=== PATIENT | male | born 1955 | race Hispanic/Latino ===

== ENCOUNTER 2017-09-20 14:04 | Emergency (ER) | payer OTHER ==
--- NOTE | 2017-09-20 18:35 | Emergency Department Report ---
HPI - General Chief Complaint: High BP Time Seen by Provider: 09/20/17 18:30 - HPI HPI: 61-year-old male comes in for elevated blood pressure. Patient was seen by his primary care nurse practitioner Hue Craig in [place] last week. At that time patient's blood pressure was elevated she had increased his lisinopril from 20 mg to 30 mg daily and to continue with amlodipine 5 mg. She also did an EKG which showed a right branch bundle block. She then referred the patient to district operations manager Dr. Peguero where the patient was seen in this Friday since the patient's blood pressure was 130/80 something the district operations manager did not do medication adjustment. Bet Taker did schedule the patient for echocardiogram as well as a stress test scheduled for 09/26/2017. A follow-up appointment with them on 10/06/2017. Patient denies any shortness of breath denies any chest pain does admit to a headache does admit to having nosebleeds. Patient is here with this disorder son and girlfriend. ED Past Medical Hx - Past Medical History Previous Medical History?: Yes Hx Hypertension: Yes - Social History Smoking Status: Former Smoker Substance Use Type: None - Medications Home Medications: Home Medications Medication Instructions Recorded Confirmed Last Taken Type Clindamycin [Clindamycin CAP] 300 mg PO Q8H 10 Days #30 cap 09/20/17 Unknown Rx Lisinopril [Zestril] 40 mg PO DAILY #30 tablet 09/20/17 Unknown Rx amLODIPine [Norvasc] 10 mg PO DAILY #30 tab 09/20/17 Unknown Rx ED Review of Systems ROS: Stated complaint: HIGH B/P AND HEADACHE Other details as noted in HPI Constitutional: denies: chills, fever Eyes: denies: eye pain, eye discharge, vision change ENT: denies: ear pain, throat pain Respiratory: denies: cough, shortness of breath, wheezing Cardiovascular: denies: chest pain, palpitations Endocrine: no symptoms reported Gastrointestinal: denies: abdominal pain, nausea, diarrhea Genitourinary: denies: urgency, dysuria Musculoskeletal: denies: back pain, joint swelling, arthralgia Skin: denies: rash, lesions Neurological: headache. denies: weakness, paresthesias Physical Exam - Physical Exam Vital Signs: Vital Signs 09/20/17 15:13 Temperature 98.3 F Pulse Rate 90 Respiratory 16 Rate Blood Pressure 173/107 Blood Pressure 173/107 [Left] O2 Sat by Pulse 95 Oximetry General: Alert and oriented no acute distress nontoxic Physical Exam: GENERAL APPEARANCE: Well developed, well nourished, in no acute distress. SKIN: Inspection of the skin reveals no rashes, ulcerations or petechiae. HEENT: The sclerae were anicteric and conjunctivae were pink and moist. Extraocular movements were intact and pupils were equal, round, and reactive to light with normal accommodation. External inspection of the ears and nose showed no scars, lesions, or masses. Lips, teeth, and gums showed normal mucosa. The oral mucosa, hard and soft palate, tongue and posterior pharynx were normal. NECK: Supple and symmetric. There was no thyroid enlargement, and no tenderness , or masses were felt. CHEST: Normal AP diameter and normal contour without any kyphoscoliosis. LUNGS: Auscultation of the lungs revealed normal breath sounds without any other adventitious sounds or rubs. CARDIOVASCULAR: There was a regular rate and rhythm without any murmurs, gallops , rubs. The carotid pulses were normal and 2+ bilaterally without bruits. Peripheral pulses were 2+ and symmetric. MUSCULOSKELETAL: Gait was normal. There was no tenderness or effusions noted. Muscle strength and tone were normal. EXTREMITIES: No cyanosis, clubbing or edema. NEUROLOGIC: Alert and oriented x 3. Normal affect. Gait was normal. Normal deep tendon reflexes with no pathological reflexes. Sensation to touch was normal. ED Course Vital Signs 09/20/17 15:13 Temperature 98.3 F Pulse Rate 90 Respiratory 16 Rate Blood Pressure 173/107 Blood Pressure 173/107 [Left] O2 Sat by Pulse 95 Oximetry ED Medical Decision Making - Radiology Data Radiology results: report reviewed, image reviewed FINAL REPORT PROCEDURE: CT HEAD/BRAIN WO CON TECHNIQUE: Computerized tomography of the head was performed without contrast material. HISTORY: headache and dizziness COMPARISON: No prior studies are available for comparison. FINDINGS: Skull and scalp: Normal. Paranasal sinuses: Minimal fluid left mastoid Ventricles and subarachnoid spaces: Normal. Cerebrum: No evidence of hemorrhage, acute infarction or mass . Cerebellum and brainstem: No evidence of hemorrhage, acute infarction or mass. Vasculature: Dominant left vertebral artery Comments: Moderate diffuse atrophy with mild periventricular microischemic change and central lacunar infarct disease IMPRESSION: No definite acute intracranial pathology. Minimal left mastoiditis. Transcribed By: TUYET Dictated By: SAVANNAH HIRSCH MD Electronically Authenticated By: SAVANNAH HIRSCH MD Signed Date/Time: 09/20/17 1504 - Medical Decision Making Patient has been evaluated by this provider fast track. Discussed the patient would do a CT scan of his head. As well as all increase his amlodipine to 10 mg daily as well as increase lisinopril to 40 mg daily. Discussed with patient he needs to keep his appointment as scheduled for his stress test and echocardiogram on 09/26/2017 as well as keep his follow-up appointment with his district operations manager as 10/06/2017. Patient verbalized understanding. Critical care attestation.: If time is entered above; I have spent that time in minutes in the direct care of this critically ill patient, excluding procedure time. ED Disposition Clinical Impression: Mastoiditis of left side Hypertension Qualifiers: Hypertension type: unspecified Qualified Code(s): I10 - Essential (primary) hypertension Disposition: TO HOME OR SELFCARE Is pt being admited?: No Does the pt Need Aspirin: No Condition: Stable Instructions: Hypertension (ED) Additional Instructions: Please take hypertensive medication as prescribed. Please follow low-sodium diet. Please keep your appointments scheduled for year echo and stress test on 09/26/2017 keeps your cardiology appointment on 10/06/2017. Follow up with her primary care provider in next 3-5 days. Prescriptions: amLODIPine [Norvasc] 10 mg PO DAILY #30 tab Clindamycin [Clindamycin CAP] 300 mg PO Q8H 10 Days #30 cap Lisinopril [Zestril] 40 mg PO DAILY #30 tablet Referrals: ALIRIO OLMOS MD [Primary Care Provider] - 3-5 Days Rafa ANTUNEZ, Hue [Other] - 3-5 Days
--- NOTE | 2017-09-20 19:07 | Cat Scan Report ---
FINAL REPORT PROCEDURE: CT HEAD/BRAIN WO CON TECHNIQUE: Computerized tomography of the head was performed without contrast material. HISTORY: headache and dizziness COMPARISON: No prior studies are available for comparison. FINDINGS: Skull and scalp: Normal. Paranasal sinuses: Minimal fluid left mastoid Ventricles and subarachnoid spaces: Normal. Cerebrum: No evidence of hemorrhage, acute infarction or mass . Cerebellum and brainstem: No evidence of hemorrhage, acute infarction or mass. Vasculature: Dominant left vertebral artery Comments: Moderate diffuse atrophy with mild periventricular microischemic change and central lacunar infarct disease IMPRESSION: No definite acute intracranial pathology. Minimal left mastoiditis.
[2017-09-20 20:01] VITALS: BP 149/80
== END 2017-09-20 20:01 | disposition home or self-care (01) ==
LOC: ED 14:04
DX: H70.92 Unspecified mastoiditis, left ear (principal); I10 Essential (primary) hypertension; Z87.891 Personal history of nicotine dependence
CPT/HCPCS: 70450; 99283

== ENCOUNTER 2019-02-24 22:12 | Emergency (ER) | payer OTHER ==
[2019-02-24 23:41] LABS: Basophils # (Auto) 0.1 K/mm3 (0.0-0.1); Basophils % (Auto) 0.7 % (0.0-1.8); Eosinophils # (Auto) 0.3 K/mm3 (0.0-0.4); Eosinophils % (Auto) 2.1 % (0.0-4.3); Hematocrit 40.4 % (35.5-45.6); Hemoglobin 14.1 gm/dl (11.8-15.2); Lymphocytes # (Auto) 1.1 K/mm3 (1.2-5.4); Lymphocytes % (Auto) 8.2 % (13.4-35.0); Mean Corpuscular HGB Conc 35 % (32-34); Mean Corpuscular Volume 92 fl (84-94); Monocytes # (Auto) 0.7 K/mm3 (0.0-0.8); Platelet Count 302 K/mm3 (140-440); Red Blood Count 4.39 M/mm3 (3.65-5.03); Red Cell Distribution Width 13.2 % (13.2-15.2)
[2019-02-25 00:10] LABS: Alanine Aminotransferase 25 units/L (7-56); Albumin 4.4 g/dL (3.9-5); BUN/Creatinine Ratio 18; Blood Urea Nitrogen 18 mg/dL (9-20); Calcium 9.3 mg/dL (8.4-10.2); Hemolysis Index 3
[2019-02-25 00:17] LABS: Bilirubin,Urine NEG (Negative); Blood,Urine MOD (Negative); Color,Urine Straw (Yellow); Mucus,Urine FEW /HPF; Protein,Urine <15 mg/dL mg/dL (Negative); Urobilinogen,Urine < 2.0 mg/dL (<2.0)
[2019-02-25] MEDS ORDERED: ZOFRAN IV ONE (00:41)
[2019-02-25] MEDS ORDERED: MORPHINE IV ONE (00:41)
--- NOTE | 2019-02-25 01:35 | Emergency Department Report ---
HPI - General Chief Complaint: Abdominal Pain Time Seen by Provider: 02/25/19 00:29 - HPI HPI: 63-year-old male presents to the emergency department from home with complaint of some right sided abdominal and flank pain that began just after having dinner at about 9:15 this evening. He denies any nausea, vomiting, fever, diarrhea, constipation, dysuria. He has a past medical history of hypertension, high cholesterol, and had bariatric surgery back in 2006. He did not take anything for her symptoms prior to presentation. No recent travel or sick contacts at home. His primary care physician is a Dr. Veronica Craig. ED Past Medical Hx - Past Medical History Previous Medical History?: Yes Hx Hypertension: Yes Hx Arthritis: Yes (chronic back pain) Additional medical history: elevated cholesterol, ejectile disfunction - Surgical History Past Surgical History?: Yes Additional Surgical History: Bariactric Surgery-2006 - Social History Smoking Status: Never Smoker Substance Use Type: None - Medications Home Medications: Home Medications Medication Instructions Recorded Confirmed Last Taken Type Clindamycin [Clindamycin CAP] 300 mg PO Q8H 10 Days #30 cap 09/20/17 Unknown Rx Lisinopril [Zestril] 40 mg PO DAILY #30 tablet 09/20/17 Unknown Rx amLODIPine [Norvasc] 10 mg PO DAILY #30 tab 09/20/17 Unknown Rx HYDROcodone/APAP 5-325 [[place] 1 each PO Q6HR PRN #12 tablet 02/25/19 Unknown Rx 5/325] Sulfamethoxazole/Trimethoprim 1 each PO BID #10 tablet 02/25/19 Unknown Rx [Bactrim DS TAB] Tamsulosin [Flomax] 0.4 mg PO QDAY #5 cap 02/25/19 Unknown Rx ED Review of Systems ROS: Stated complaint: RT ABD PAIN Other details as noted in HPI Comment: All other systems reviewed and negative Constitutional: denies: chills, fever Eyes: denies: eye pain, vision change ENT: denies: ear pain, throat pain Respiratory: denies: cough, shortness of breath Cardiovascular: denies: chest pain, palpitations Gastrointestinal: abdominal pain. denies: vomiting Genitourinary: denies: dysuria, discharge Musculoskeletal: denies: back pain, arthralgia Skin: denies: rash, lesions Neurological: denies: headache, weakness Physical Exam - Physical Exam Vital Signs: Vital Signs 02/24/19 02/24/19 02/25/19 22:23 22:49 00:05 Temperature 97.4 F L 98.2 F 97.9 F Pulse Rate 58 L 72 93 H Respiratory 18 24 23 Rate Blood Pressure 160/87 160/87 Blood Pressure 172/86 [Right] O2 Sat by Pulse 96 99 99 Oximetry 02/25/19 01:00 Temperature Pulse Rate Respiratory 18 Rate Blood Pressure Blood Pressure [Right] O2 Sat by Pulse Oximetry Physical Exam: GENERAL: The patient is well-developed well-nourished. HENT: Normocephalic. Atraumatic. Patient has moist mucous membranes. EYES: Extraocular motions are intact. NECK: Supple. Trachea is midline. CHEST/LUNGS: Clear to auscultation. There is no respiratory distress noted. HEART/CARDIOVASCULAR: Regular. There is no tachycardia. There is no murmur. ABDOMEN: Abdomen is soft. Unable to reproduce the patient's abdominal or flank pain to palpation. No guarding. Patient has normal bowel sounds. There is no abdominal distention. SKIN: Skin is warm and dry. NEURO: The patient is awake, alert, and oriented. The patient is cooperative. The patient has no focal neurologic deficits. The patient has normal speech. MUSCULOSKELETAL: There is no tenderness or deformity. There is no limitation range of motion. There is no evidence of acute injury. ED Course Vital Signs 02/24/19 02/24/19 02/25/19 22:23 22:49 00:05 Temperature 97.4 F L 98.2 F 97.9 F Pulse Rate 58 L 72 93 H Respiratory 18 24 23 Rate Blood Pressure 160/87 160/87 Blood Pressure 172/86 [Right] O2 Sat by Pulse 96 99 99 Oximetry 02/25/19 01:00 Temperature Pulse Rate Respiratory 18 Rate Blood Pressure Blood Pressure [Right] O2 Sat by Pulse Oximetry ED Medical Decision Making - Lab Data Result diagrams: 02/24/19 23:02 02/24/19 23:02 - Radiology Data Radiology results: report reviewed PROCEDURE: CT ABDOMEN PELVIS W CON TECHNIQUE: Computerized axial tomography of the abdomen and pelvis was performed after the administration of IV iodinated nonionic contrast. CT DOSE LENGTH PRODUCT: mGycm HISTORY: Right flank and RLQ abd pain COMPARISONS: None . FINDINGS: Visualized lower thorax: No significant abnormality. Liver: Normal size and attenuation. Spleen: Normal size and attenuation. Gallbladder and biliary system: Normal. Pancreas: Normal. Adrenals: Normal. Kidneys: There is mild right-sided hydronephrosis secondary to a partially obstr ucting 2.6 mm stone in the distal right ureter just above the UVJ. There are no additional renal sto francesco.. GI tract: The bowel loops are normal in caliber and course. The appendix is not enlarged. There are postsurgical changes along the stomach from previous gastric surgery.. Lymph nodes and mesentery: There is reticulation of the mesentery centrally in the mid to lower abdomen. Mesenteric panniculitis cannot be excluded. Vasculature: Normal.. Bladder: Normal. Reproductive organs: Normal. Peritoneum: No free fluid. Musculoskeletal structures: No significant abnormality. Other: None. IMPRESSION: Mild right-sided hydronephrosis secondary to a partially obstructing 2.6 mm stone in the distal right ureter just above the right UVJ. Normal appendix. Reticulation of the mesentery centrally in the mid to lower abdomen. Mesenteric panniculitis cannot be excluded.. This document is electronically signed by Rachid Stewart MD., February 25 2019 01:55:47 AM ET Transcribed By: JAYE Dictated By: RACHID STEWART MD Electronically Authenticated By: RACHID STEWART MD Signed Date/Time: 02/25/19 0158 - Medical Decision Making Patient and to the emergency department with some right-sided flank and abdominal pain that started just after dinner. The pain was not reproducible to palpation. Labs are mostly unremarkable except for some hematuria seen on uri nalysis. Patient was given some IV pain medication. A CT scan of the abdomen and pelvis with IV contrast was done and came back showing a 2.5 mm right UVJ stone with mild hydronephrosis. Patient's vital signs are stable including being afebrile. There is no leukocytosis, no urinary tract infection, and no renal insufficiency. We will attempt to treat the patient outpatient with straining of the urine, pain medication, antibiotics and Flomax. He was given a referral for urology. He will return to the ER with any worsening of his symptoms or any acute distress. - Differential Diagnosis nephrolithiasis, appendicitis, colitis, pyelonephritis Critical Care Time: No Critical care attestation.: If time is entered above; I have spent that time in minutes in the direct care of this critically ill patient, excluding procedure time. ED Disposition Clinical Impression: Nephrolithiasis, Renal colic on right side Hypertension Qualifiers: Hypertension type: essential hypertension Qualified Code(s): I10 - Essential (primary) hypertension Disposition: TO HOME OR SELFCARE Is pt being admited?: No Condition: Stable Instructions: Kidney Stones (ED), Renal Colic (ED), How to Strain Your Urine (ED), Hypertension (ED) Additional Instructions: Please follow up with her primary care physician. I am giving you a referral for a local urologist, Dr. Khan, to follow up regarding her kidney stones. Strain your urine. Return to the emergency Department with any worsening of your symptoms including development of fever, inability to urinate, worsening abdominal or flank pain, or with any acute distress. You have been prescribed a medication that is sedating and therefore should not be taken prior to driving, working, and responsible for children and in no way should be mixed with alcohol of any quantity. Prescriptions: Sulfamethoxazole/Trimethoprim [Bactrim DS TAB] 1 each PO BID #10 tablet Tamsulosin [Flomax] 0.4 mg PO QDAY #5 cap HYDROcodone/APAP 5-325 [[place] 5/325] 1 each PO Q6HR PRN #12 tablet PRN Reason: Pain Referrals: MADDIE KHAN MD [Staff Physician] - 2-3 Days Time of Disposition: 02:26
--- NOTE | 2019-02-25 01:58 | Cat Scan Report ---
PROCEDURE: CT ABDOMEN PELVIS W CON TECHNIQUE: Computerized axial tomography of the abdomen and pelvis was performed after the administr ation of IV iodinated nonionic contrast. CT DOSE LENGTH PRODUCT: mGycm HISTORY: Right flank and RLQ abd pain COMPARISONS: None . FINDINGS: Visualized lower thorax: No significant abnormality. Liver: Normal size and attenuation. Spleen: Normal size and attenuation. Gallbladder and biliary system: Normal. Pancreas: Normal. Adrenals: Normal. Kidneys: There is mild right-sided hydronephrosis secondary to a partially obstructing 2.6 mm stone i n the distal right ureter just above the UVJ. There are no additional renal stones.. GI tract: The bowel loops are normal in caliber and course. The appendix is not enlarged. There are postsurgical changes along the stomach from previous gastric surgery.. Lymph nodes and mesentery: There is reticulation of the mesentery centrally in the mid to lower abdom en. Mesenteric panniculitis cannot be excluded. Vasculature: Normal.. Bladder: Normal. Reproductive organs: Normal. Peritoneum: No free fluid. Musculoskeletal structures: No significant abnormality. Other: None. IMPRESSION: Mild right-sided hydronephrosis secondary to a partially obstructing 2.6 mm stone in the distal right ureter just above the right UVJ. Normal appendix. Reticulation of the mesentery centrally in the mid to lower abdomen. Mesenteric panniculitis cannot b e excluded.. This document is electronically signed by Feliberto Stewart MD., February 25 2019 01:55:47 AM ET
[2019-02-25 03:07] VITALS: BP 159/70
== END 2019-02-25 02:50 | disposition home or self-care (01) ==
LOC: ED 22:12
DX: N20.2 Calculus of kidney with calculus of ureter (principal); I10 Essential (primary) hypertension; M19.90 Unspecified osteoarthritis, unspecified site; G89.29 Other chronic pain; E78.00 Pure hypercholesterolemia, unspecified; Z79.899 Other long term (current) drug therapy
CPT/HCPCS: 36415; 74177; 80053; 81001; 83690; 85025; 96374; 96375; 99284; J2270; J2405; Q9967

== ENCOUNTER 2020-01-31 22:27 | Inpatient (IN) | payer OTHER ==
[2020-01-31] MEDS ORDERED: KETOROLAC 30 MG/1 ML INJ IV ONE (22:50)
[2020-01-31] MEDS ORDERED: SODIUM CHLORIDE 0.9% 1000 ML 1,000 ML IV ONE (22:50)
--- NOTE | 2020-01-31 23:00 | Emergency Department Report ---
ED Abdominal Pain HPI - General Chief Complaint: Abdominal Pain Stated Complaint: ABDOMINAL PAIN Time Seen by Provider: 01/31/20 22:55 Source: patient Mode of arrival: Ambulatory Limitations: No Limitations - History of Present Illness Initial Comments: 64-year-old male with history of hypertension, kidney stones, presents to ED with abdominal pain x2 hours. Patient states pain is located in abdomen diffusely. This is similar to the pain he experienced in the past due to a kidney stone. Patient denies nausea, vomiting, diarrhea, hematuria, dysuria, fever. MD Complaint: abdominal pain -: hour(s) (2) Location: diffuse Radiation: none Migration to: no migration Quality: sharp Consistency: intermittent Improves With: nothing Worsens With: nothing Associated Symptoms: denies: nausea, vomiting, diarrhea, fever, dysuria, hematuria - Related Data Previous Rx's Medication Instructions Recorded Last Taken Type Clindamycin [Clindamycin CAP] 300 mg PO Q8H 10 Days #30 cap 09/20/17 Unknown Rx Lisinopril [Zestril] 40 mg PO DAILY #30 tablet 09/20/17 Unknown Rx amLODIPine 10 mg PO DAILY #30 tab 09/20/17 Unknown Rx HYDROcodone/APAP 5-325 [[place] 1 each PO Q6HR PRN #12 tablet 02/25/19 Unknown Rx 5/325] Sulfamethoxazole/Trimethoprim 1 each PO BID #10 tablet 02/25/19 Unknown Rx [Bactrim DS TAB] Tamsulosin [Flomax] 0.4 mg PO QDAY #5 cap 02/25/19 Unknown Rx Allergies Allergy/AdvReac Type Severity Reaction Status Date / Time No Known Allergies Allergy Verified 01/31/20 23:28 ED Review of Systems ROS: Stated complaint: ABDOMINAL PAIN Other details as noted in HPI Comment: All other systems reviewed and negative Constitutional: denies: chills, fever Cardiovascular: denies: chest pain Gastrointestinal: abdominal pain. denies: nausea, vomiting, diarrhea Genitourinary: denies: dysuria, hematuria Musculoskeletal: denies: back pain ED Past Medical Hx - Past Medical History Hx Hypertension: Yes Hx Arthritis: Yes (chronic back pain) Additional medical history: elevated cholesterol, ejectile disfunction - Surgical History Additional Surgical History: Bariactric Surgery-2006 - Social History Smoking Status: Never Smoker Substance Use Type: None - Medications Home Medications: Home Medications Medication Instructions Recorded Confirmed Last Taken Type Clindamycin [Clindamycin CAP] 300 mg PO Q8H 10 Days #30 cap 09/20/17 Unknown Rx Lisinopril [Zestril] 40 mg PO DAILY #30 tablet 09/20/17 Unknown Rx amLODIPine 10 mg PO DAILY #30 tab 09/20/17 Unknown Rx HYDROcodone/APAP 5-325 [[place] 1 each PO Q6HR PRN #12 tablet 02/25/19 Unknown Rx 5/325] Sulfamethoxazole/Trimethoprim 1 each PO BID #10 tablet 02/25/19 Unknown Rx [Bactrim DS TAB] Tamsulosin [Flomax] 0.4 mg PO QDAY #5 cap 02/25/19 Unknown Rx ED Physical Exam - General Limitations: No Limitations General appearance: alert, other (appears uncomfortable) - Head Head exam: Present: atraumatic, normocephalic - Eye Eye exam: Present: normal appearance, EOMI - ENT ENT exam: Present: mucous membranes moist - Neck Neck exam: Present: normal inspection - Respiratory Respiratory exam: Present: normal lung sounds bilaterally. Absent: respiratory distress - Cardiovascular Cardiovascular Exam: Present: regular rate, normal rhythm - GI/Abdominal GI/Abdominal exam: Present: soft. Absent: distended, tenderness - Extremities Exam Extremities exam: Present: normal inspection - Neurological Exam Neurological exam: Present: alert, oriented X3 - Psychiatric Psychiatric exam: Present: normal affect, normal mood - Skin Skin exam: Present: warm, dry, intact, normal color, diaphoretic ED Course Vital Signs 01/31/20 01/31/20 01/31/20 22:33 22:38 22:58 Temperature 97.5 F L Pulse Rate 78 78 Respiratory 22 18 24 Rate Blood Pressure 145/72 Blood Pressure 150/85 [Left] O2 Sat by Pulse 98 97 Oximetry - Reevaluation(s) Reevaluation #1: 02/01/20 00:20 Pt states pain improved but still present in "the bottom part" of his abdomen. ED Medical Decision Making - Lab Data Result diagrams: 01/31/20 22:55 01/31/20 22:55 - EKG Data -: EKG Interpreted by Mi EKG shows normal: sinus rhythm, intervals, ST-T waves Rate: normal - EKG Data Interpretation: no acute changes, other (RBBB) - Radiology Data Radiology results: report reviewed, image reviewed - Medical Decision Making 64 yo M w/ acute diffuse abdominal pain, mostly located in the mid abdomen. Vitals normal, labs unremarkable. Pt diaphoretic and very uncomfortable upon presentation. Pt thought sx's possibly due to a kidney stone, however, no evidence of stone on CT. CT shows nonspecific midabdominal stranding. Pt reports some pain relief w/ IV meds and fluids. Spoke w/ Dr Grace regarding CT findings. Will admit pt to hospitalist for observation. Dr Grace to consult. Requests ESR and CRP. States pt can be placed on liquid diet for now. - Differential Diagnosis kidney stone, bowel obstruction, aortic dissection Critical care attestation.: If time is entered above; I have spent that time in minutes in the direct care of this critically ill patient, excluding procedure time. ED Disposition Clinical Impression: Acute abdominal pain Disposition: OP ADMIT IP TO THIS HOSP Is pt being admited?: Yes Condition: Stable Referrals: PRIMARY CAREMD [Primary Care Provider] - 3-5 Days Time of Disposition: 01:03
[2020-01-31 23:10] LABS: Basophils # (Auto) 0.1 K/mm3 (0.0-0.1); Basophils % (Auto) 0.8 % (0.0-1.8); Eosinophils # (Auto) 0.2 K/mm3 (0.0-0.4); Eosinophils % (Auto) 3.4 % (0.0-4.3); Hematocrit 44.5 % (35.5-45.6); Hemoglobin 14.8 gm/dl (11.8-15.2); Lymphocytes # (Auto) 1.8 K/mm3 (1.2-5.4); Lymphocytes % (Auto) 25.1 % (13.4-35.0); Mean Corpuscular HGB Conc 33 % (32-34); Mean Corpuscular Volume 91 fl (84-94); Monocytes # (Auto) 0.7 K/mm3 (0.0-0.8); Monocytes % (Auto) 9.7 % (0.0-7.3); Platelet Count 354 K/mm3 (140-440); Red Blood Count 4.88 M/mm3 (3.65-5.03); Red Cell Distribution Width 13.3 % (13.2-15.2)
[2020-01-31 23:20] LABS: INR 0.89 (0.87-1.13)
[2020-01-31 23:21] LABS: Partial Thromboplastin Time 22.7 Sec. (24.2-36.6)
[2020-01-31 23:25] LABS: Alanine Aminotransferase 25 units/L (7-56); Albumin 4.7 g/dL (3.9-5); BUN/Creatinine Ratio 16; Blood Urea Nitrogen 16 mg/dL (9-20); Calcium 9.4 mg/dL (8.4-10.2); Hemolysis Index 13
[2020-01-31] MEDS ORDERED: MORPHINE 2 MG/1 ML INJ IV ONE (23:27)
[2020-01-31] MEDS ORDERED: MORPHINE 4 MG/1 ML INJ ONE (23:29)
--- NOTE | 2020-02-01 00:10 | Cat Scan Report ---
CT ABDOMEN AND PELVIS WITH IV CONTRAST INDICATION: Generalized abdominal pain TECHNIQUE: Following the administration of intravenous contrast, multiple axial CT images of the abdo men and pelvis were acquired. Sagittal and coronal reformats were obtained. All CT performed at this facility utilize dose reduction techniques including automated exposure control, iterative reconstru ction and weight based dosing when appropriate to reduce patient radiation dose to as low as reasonab ly achievable. COMPARISON: CT of the abdomen and pelvis, 02/25/2019 FINDINGS: Limited imaging of the bilateral lung bases demonstrates no evidence of acute abnormality. Postsurgic al changes of the gastroesophageal junction are again noted. Abdomen: The liver, gallbladder, spleen, pancreas, bilateral adrenal glands and bilateral kidneys christoph w no definitive evidence of acute abnormality. There is increased stranding/reticulation of the mesen teric fat within the upper central abdomen appearing slightly more prominent than on the previous antonette dy. There is no definitive evidence of bowel obstruction. There is no evidence of pneumatosis or free air. The abdominal aorta is normal in caliber with minimal scattered atherosclerotic calcifications. Pelvis: No free fluid is seen within the pelvis. The urinary bladder appears normal. Bones and Soft Tissues: Evaluation of bony structures demonstrates no evidence of acute bony abnormal ity. There are mild bony degenerative changes of the thoracolumbar spine. Evaluation of soft tissue s tructures demonstrates no evidence of acute soft tissue abnormality. IMPRESSION: 1. Stranding/reticulation of the mesenteric fat within the midabdomen, appearing slightly more promin ent than on the previous study ("tanmay mesentery"). This is a nonspecific finding but can be associat ed with mesenteric panniculitis, neoplasm such as lymphoma or inflammatory bowel disease. Please valeriano elate with patient's clinical circumstances. Signer Name: Angelita Dupont MD Signed: 02/01/2020 12:06 AM Workstation Name: [id number]
[2020-02-01] MEDS ORDERED: ONDANSETRON 4 MG/2 ML INJ IV PRN (01:16)
[2020-02-01] MEDS ORDERED: MORPHINE 2 MG/1 ML INJ IV PRN (01:16)
[2020-02-01] MEDS ORDERED: ACETAMINOPHEN 325 MG TAB PO PRN (01:16)
[2020-02-01 01:59] LABS: Mucus,Urine FEW /HPF
[2020-02-01 02:00] LABS: Bilirubin,Urine NEG (Negative); Blood,Urine NEG (Negative); Color,Urine Straw (Yellow); Protein,Urine <15 mg/dL mg/dL (Negative); Urobilinogen,Urine < 2.0 mg/dL (<2.0)
--- NOTE | 2020-02-01 03:54 | History and Physical Report ---
History of Present Illness Date of examination: 02/01/20 Date of admission: 02/01/20 01:36 Chief complaint: Abdominal pain History of present illness: 64-year-old male with known history of hypertension and history of kidney stones presenting today complaining of abdominal pain which has been ongoing for a few hours prior to reporting to the emergency room. Patient indicates that pain is similar to the pain he had during an episode of kidney stone. Abdominal pain is said to be generalized. He denies any fever or chills, no nausea vomiting and no diarrhea, no hematuria or dysuria. No chest pain or shortness of breath. Patient denies any sick contacts and no recent travel. He had some IV analgesic medication in the emergency room with significant impro vement in his abdominal pain. Work-up in the emergency room with CT of the abdomen and pelvis is nonspecific but indicates possible mesenteric panniculitis versus inflammatory bowel disease . General surgeon Dr. Grace was consulted by the ER physician. Past History Past Medical History: hypertension, hyperlipidemia, other (History of chronic back pain) Past Surgical History: Other (Bariatric surgery in 2006) Social history: no significant social history Family history: no significant family history Medications and Allergies Allergies Allergy/AdvReac Type Severity Reaction Status Date / Time No Known Allergies Allergy Verified 01/31/20 23:28 Home Medications Medication Instructions Recorded Confirmed Last Taken Type Lisinopril [Zestril] 40 mg PO DAILY #30 tablet 09/20/17 02/01/20 01/31/20 08:00 Rx amLODIPine 10 mg PO DAILY #30 tab 09/20/17 02/01/20 01/31/20 08:00 Rx Tamsulosin [Flomax] 0.4 mg PO QDAY #5 cap 02/25/19 02/01/20 01/31/20 08:00 Rx Baclofen 20 mg PO QHS 02/01/20 02/01/20 01/30/20 20:00 History Cialis 5 mg PO DAILY 02/01/20 02/01/20 01/31/20 08:00 History Hydrochlorothiazide 25 mg PO DAILY 02/01/20 02/01/20 01/31/20 08:00 History Sildenafil 100 mg PO QHS 02/01/20 02/01/20 01/30/20 20:00 History Active Meds: Active Medications Acetaminophen (Tylenol) 650 mg PO Q4H PRN PRN Reason: Pain MILD(1-3)/Fever >100.5/MAO Sodium Chloride (Nacl 0.9% 1000 Ml) 1,000 mls @ 125 mls/hr IV DIRECT RASHAD Morphine Sulfate (Morphine) 2 mg IV Q4H PRN PRN Reason: Pain, Moderate (4-6) Ondansetron HCl (Zofran) 4 mg IV Q8H PRN PRN Reason: Nausea And Vomiting Sodium Chloride (Sodium Chloride Flush Syringe 10 Ml) 10 ml IV BID RASHAD Sodium Chloride (Sodium Chloride Flush Syringe 10 Ml) 10 ml IV PRN PRN PRN Reason: LINE FLUSH Review of Systems Constitutional: other (Diaphoresis), no fever, no chills Cardiovascular: no chest pain, no palpitations Respiratory: no cough, no shortness of breath Gastrointestinal: abdominal pain, nausea, no vomiting, no diarrhea Genitourinary Male: no dysuria, no hematuria, no flank pain Musculoskeletal: no neck pain, no low back pain Integumentary: no rash, no pruritis Neurological: no headaches, no confusion Exam - Constitutional Vitals: Temp Pulse Resp BP Pulse Ox 98.0 F 57 L 14 120/70 94 02/01/20 02:13 02/01/20 03:00 02/01/20 03:00 02/01/20 03:00 02/01/20 03:00 General appearance: Present: no acute distress, well-nourished - EENT Eyes: Present: PERRL, EOM intact ENT: hearing intact, clear oral mucosa, dentition normal - Neck Neck: Present: supple, normal ROM - Respiratory Respiratory effort: normal Respiratory: bilateral: CTA - Cardiovascular Rhythm: regular Heart Sounds: Present: S1 & S2 - Extremities Extremities: no ischemia, pulses intact, pulses symmetrical, No edema, Full ROM Peripheral Pulses: within normal limits - Abdominal General gastrointestinal: Present: soft, tender (Mild tenderness in the periumbilical region), non-distended, normal bowel sounds - Integumentary Integumentary: Present: clear, warm, dry - Musculoskeletal Musculoskeletal: strength equal bilaterally - Psychiatric Psychiatric: appropriate mood/affect, intact judgment & insight, cooperative - Neurologic Neurologic: CNII-XII intact, moves all extremities HEART Score - HEART Score Troponin: Troponin T < 0.010 ng/mL (0.00-0.029) 01/31/20 22:57 Results - Labs CBC & Chem 7: 01/31/20 22:55 01/31/20 22:55 Labs: Abnormal lab results 01/31/20 01/31/20 01/31/20 Range/Units 22:55 22:55 22:57 [place] % (Auto) 9.7 H (0.0-7.3) % PT 11.9 L (12.2-14.9) Sec. APTT 22.7 L (24.2-36.6) Sec. Glucose 135 H (75-100) mg/dL Ur Specific [place] (1.003-1.030) 02/01/20 Range/Units 01:31 [place] % (Auto) (0.0-7.3) % PT (12.2-14.9) Sec. APTT (24.2-36.6) Sec. Glucose (75-100) mg/dL Ur Specific [place] 1.053 H (1.003-1.030) Assessment and Plan - Patient Problems (1) Acute abdominal pain Current Visit: Yes Status: Acute Plan to address problem: Etiology is unclear. Pain is improved on IV analgesic medication. Consult has also been placed to the general surgeon Dr. Grace for further evaluation. (2) Hypertension Current Visit: Yes Status: Acute Plan to address problem: We will monitor vital signs and continue routine home medications (3) DVT prophylaxis Current Visit: Yes Status: Acute Plan to address problem: We will place on sequential compression device. (4) Full code status Current Visit: Yes Status: Acute
[2020-02-01] MEDS ORDERED: SODIUM CHLORIDE 0.9% 1000 ML 1,000 ML ONE (04:42)
[2020-02-01] MEDS: SODIUM CHLORIDE 0.9% 1000 ML 1,000 ML IV SCH ×2 (04:58→06:50)
[2020-02-01 05:36] VITALS: BP 125/77
--- NOTE | 2020-02-01 09:15 | Consultation ---
History of Present Illness Consult date: 02/01/20 Reason for consult: abdominal pain Requesting physician: PRITESH SNEED Chief complaint: acute onset of abdominal pain - History of present illness History of present illness: 64yo M with a history of a gastric bypass surgery 20 years ago presents with acute onset of abdominal pain. Evaluation in the emergency room with CT scan showed evidence of haziness in the mid small bowel mesentery. Etiology was unclear. General surgery was consulted. Patient reports that he had a gastric bypass surgery approximately 20 years ago. He is not sure exactly what was done. He did not follow-up afterwards for postoperative care and dietary management. He has been eating as he sees fit. He has suffered from nutritional deficiencies such as iron. He has had to have iron replacement. Yesterday after having some beans, he began to experience abdominal pain. This is the same sort of pain he had about 1 year ago. At that time he was diagnosed with kidney stones. He thought the same thing was occurring this time. Denies any fevers, chills, nausea, vomiting. He has had no change in his bowel habits. This morning, his pain has resolved. He has no other symptoms. He feels well. He is hungry and thirsty. Past History Past Medical History: hypertension, hyperlipidemia, other (History of chronic back pain; recently treated for H.pylori) Past Surgical History: Other (Bariatric surgery in 2006) Social history: no significant social history, alcohol abuse (occasional). denies: smoking, prescription drug abuse, IV drug use Family history: no significant family history Medications and Allergies Allergies Allergy/AdvReac Type Severity Reaction Status Date / Time No Known Allergies Allergy Verified 01/31/20 23:28 Home Medications Medication Instructions Recorded Confirmed Last Taken Type Lisinopril [Zestril] 40 mg PO DAILY #30 tablet 09/20/17 02/01/20 01/31/20 08:00 Rx amLODIPine 10 mg PO DAILY #30 tab 09/20/17 02/01/20 01/31/20 08:00 Rx Tamsulosin [Flomax] 0.4 mg PO QDAY #5 cap 02/25/19 02/01/20 01/31/20 08:00 Rx Baclofen 20 mg PO QHS 02/01/20 02/01/20 01/30/20 20:00 History Cialis 5 mg PO DAILY 02/01/20 02/01/20 01/31/20 08:00 History Hydrochlorothiazide 25 mg PO DAILY 02/01/20 02/01/20 01/31/20 08:00 History Sildenafil 100 mg PO QHS 02/01/20 02/01/20 01/30/20 20:00 History Active Meds: Active Medications Acetaminophen (Tylenol) 650 mg PO Q4H PRN PRN Reason: Pain MILD(1-3)/Fever >100.5/MAO Sodium Chloride (Nacl 0.9% 1000 Ml) 1,000 mls @ 125 mls/hr IV DIRECT RASHAD Last Admin: 02/01/20 06:50 Dose: 125 mls/hr Documented by: Morphine Sulfate (Morphine) 2 mg IV Q4H PRN PRN Reason: Pain, Moderate (4-6) Ondansetron HCl (Zofran) 4 mg IV Q8H PRN PRN Reason: Nausea And Vomiting Sodium Chloride (Sodium Chloride Flush Syringe 10 Ml) 10 ml IV BID [facility] Sodium Chloride (Sodium Chloride Flush Syringe 10 Ml) 10 ml IV PRN PRN PRN Reason: LINE FLUSH Review of Systems - Constitutional chronic pain, no fever, no chills - Cardiovascular chest pain, shortness of breath - Respiratory no cough - Gastrointestinal abdominal pain, dyspepsia/bloating, no nausea, no vomiting, no change in bowel habits - Genitourinary no flank pain - Muskuloskeletal low back pain - Integumentary no rash, no sores, no wounds Exam Vital Signs Temp Pulse Resp BP Pulse Ox 97.5 F L 76 20 145/72 98 01/31/20 22:31 01/31/20 22:31 01/31/20 22:31 01/31/20 22:31 01/31/20 22:31 - General physical appearance Positive: well developed, well nourished, no distress, no pain, other (pleasant) - Eyes Positive: normal occular movement - ENT Positive: poor nursing home - Respiratory Positive: normal expansion, normal respiratory effort, clear to auscultation - Cardiovascular Rhythm: regular - Abdomen Abdomen: Present: soft, surgical scars (well healed lap incisions). Absent: tender, distended, masses, guarding, rigid - Integumentary no rash, no growths, no abnormal pigmentation - Neurologic Neurologic: alert and oriented to time, place and person, motor strength and sensation are grossly intact - Psychiatric Psychiatric: appropriate mood/affect, intact judgment & insight, cooperative Results - Labs 01/31/20 22:55 01/31/20 22:55 Abnormal lab results 01/31/20 01/31/20 01/31/20 Range/Units 22:55 22:55 22:57 [place] % (Auto) 9.7 H (0.0-7.3) % PT 11.9 L (12.2-14.9) Sec. APTT 22.7 L (24.2-36.6) Sec. Glucose 135 H (75-100) mg/dL Ur Specific [place] (1.003-1.030) 02/01/20 Range/Units 01:31 [place] % (Auto) (0.0-7.3) % PT (12.2-14.9) Sec. APTT (24.2-36.6) Sec. Glucose (75-100) mg/dL Ur Specific [place] 1.053 H (1.003-1.030) Diabetes panel 01/31/20 Range/Units 22:55 Sodium 139 (137-145) mmol/L Potassium 3.8 (3.6-5.0) mmol/L Chloride 100.6 (98-107) mmol/L Carbon Dioxide 22 (22-30) mmol/L BUN 16 (9-20) mg/dL Creatinine 1.0 (0.8-1.5) mg/dL Glucose 135 H (75-100) mg/dL Calcium 9.4 (8.4-10.2) mg/dL AST 22 (5-40) units/L ALT 25 (7-56) units/L Alkaline Phosphatase 81 (35-129) units/L Total Protein 7.2 (6.3-8.2) g/dL Albumin 4.7 (3.9-5) g/dL Calcium panel 01/31/20 Range/Units 22:55 Calcium 9.4 (8.4-10.2) mg/dL Albumin 4.7 (3.9-5) g/dL Pituitary panel 01/31/20 Range/Units 22:55 Sodium 139 (137-145) mmol/L Potassium 3.8 (3.6-5.0) mmol/L Chloride 100.6 (98-107) mmol/L Carbon Dioxide 22 (22-30) mmol/L BUN 16 (9-20) mg/dL Creatinine 1.0 (0.8-1.5) mg/dL Glucose 135 H (75-100) mg/dL Calcium 9.4 (8.4-10.2) mg/dL Adrenal panel 01/31/20 Range/Units 22:55 Sodium 139 (137-145) mmol/L Potassium 3.8 (3.6-5.0) mmol/L Chloride 100.6 (98-107) mmol/L Carbon Dioxide 22 (22-30) mmol/L BUN 16 (9-20) mg/dL Creatinine 1.0 (0.8-1.5) mg/dL Glucose 135 H (75-100) mg/dL Calcium 9.4 (8.4-10.2) mg/dL Total Bilirubin 0.30 (0.1-1.2) mg/dL AST 22 (5-40) units/L ALT 25 (7-56) units/L Alkaline Phosphatase 81 (35-129) units/L Total Protein 7.2 (6.3-8.2) g/dL Albumin 4.7 (3.9-5) g/dL - Imaging CT scan - abdomen: report reviewed, image reviewed CT scan - pelvis: report reviewed, image reviewed Assessment and Plan - Patient Problems (1) Acute abdominal pain Current Visit: Yes Status: Acute Plan to address problem: Pt stable. Issue has resolved. Patient does report that he has had similar pains in the past after eating certain foods. His pains may be related to the fact that he has not followed or started a bariatric diet after his surgery. He is not aware what foods he can and cannot have. He has not tried to avoid foods that cause him discomfort. This may be the main therapy for him. I have encouraged him to get information on appropriate post gastric bypass surgery diets. As for the "tanmay mesentery" that was seen on CT scan. He had a very similar finding on a CT scan in 2019. I think this may be related to his gastric bypass. If he had a Alirio-en-Y bypass, the alteration in the position of his mesentery, may give this abnormal appearance. As his belly is completely benign, I do not think that we have any acute issues such as inflammation/infection. If the team wanted to pursue possible lymphoma work-up, I think this can be done as an outpatient with oncology. I have ordered a bariatric diet for him. If he tolerates that, he is okay to discharge from my perspective. Please call with any questions Time=30min
--- NOTE | 2020-02-01 09:51 | Discharge Summary ---
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 Patient indicates that pain is similar to the pain he had during an episode of kidney stone. Abdominal pain is said to be generalized. He denies any fever or chills, no nausea vomiting and no diarrhea, no hematuria or dysuria. No chest pain or shortness of breath. Patient denies any sick contacts and no recent travel. He had some IV analgesic medication in the emergency room with significant improvement in his abdominal pain. Work-up in the emergency room with CT of the abdomen and pelvis is nonspecific but indicates possible mesenteric panniculitis versus inflammatory bowel disease . General surgeon Dr. Aquino was consulted by the ER physician. Patient was seen by Surgery and further history revealed that the patient had a gastric bypass surgery approximately 20 years ago. He is not sure exactly what was done. He did not follow-up afterwards for postoperative care and dietary management. He has been eating as he sees fit. He has suffered from nutritional deficiencies such as iron. He has had to have iron replacement. Yesterday after having some beans, he began to experience abdominal pain. This is the same sort of pain he had about 1 year ago. At that time he was diagnosed with kidney stones. He thought the same thing was occurring this time. Denies any fevers, chills, nausea, vomiting. He has had no change in his bowel habits. This morning, his pain has resolved. He has no other symptoms. He feels well. He is hungry and thirsty. As for the "tanmay mesentery" that was seen on CT scan. He had a very similar finding on a CT scan in 2019. I think this may be related to his gastric bypass. If he had a Alirio-en-Y bypass, the alteration in the position of his mesentery, may give this abnormal appearance. As his belly is completely benign, I do not think that we have any acute issues such as inflammation/infection. If the team wanted to pursue possible lymphoma work-up, I think this can be done as an outpatient with oncology. I have ordered a bariatric diet for him. If he tolerates that, he is okay to discharge from my perspective. 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 Issue has resolved. Patient does report that he has had similar pains in the past after eating certain foods. His pains may be related to the fact that he has not followed or started a bariatric diet after his surgery. He is not aware what foods he can and cannot have. He has not tried to avoid foods that cause him discomfort. This may be the main therapy for him. I have encouraged him to get information on appropriate post gastric bypass surgery diets. As for the "tanmay mesentery" that was seen on CT scan. He had a very similar finding on a CT scan in 2019. I think this may be related to his gastric bypass. If he had a Alirio-en-Y bypass, the alteration in the position of his mesentery, may give this abnormal appearance. As his belly is completely benign, I do not think that we have any acute issues such as inflammation/infection. If the team wanted to pursue possible lymphoma work-up, I think this can be done as an outpatient with oncology. I have ordered a bariatric diet for him. If he tolerates that, he is okay to discharge from my perspective. Please call with any questions Time=30min - Constitutional Vitals: Temp Pulse Resp BP Pulse Ox 98.5 F 63 16 125/77 97 02/01/20 04:57 02/01/20 04:57 02/01/20 04:57 02/01/20 04:57 02/01/20 04:57 Plan Activity: advance as tolerated, fall precautions Diet: per dietitian instruction Follow up with: PRIMARY CAREMD [Primary Care Provider] - 3-5 Days BAIRON HAQUE MD [Staff Physician] - 7 Days
== END 2020-02-01 13:38 | disposition home or self-care (01) | DRG 392 ==
LOC: ED 22:27 → IMCU 02-01 01:36
PROVIDERS: ADMIT Internal Medicine Geriatric Medicine; ATTEND Internal Medicine
DX: R10.9 Unspecified abdominal pain (principal); I10 Essential (primary) hypertension; M19.90 Unspecified osteoarthritis, unspecified site; G89.29 Other chronic pain; M54.9 Dorsalgia, unspecified; E78.5 Hyperlipidemia, unspecified; Z87.442 Personal history of urinary calculi; Z98.84 Bariatric surgery status
CPT/HCPCS: 36415; 74177; 80053; 81001; 83690; 84484; 85025; 85610; 85652; 85730; 86140; 93005; G0378; J1885; J2270; J7030; Q9967